=== PATIENT | male | born 1945 | race African-American/Black ===

== ENCOUNTER → 2019-07-17 | Outpatient (CLI) | payer MEDICARE ==
[2019-07-17 16:10] LABS: ALBUMIN 3.5 gm/dl (3.1-4.5); CREATININE 1.81 mg/dL (0.70-1.30); PHOSPHOROUS 2.4 mg/dL (2.5-4.9); TOTAL PROTEIN 7.6 gm/dL (6.4-8.2)
== END | disposition home or self-care (01) ==
LOC: LAB 14:52 → US 15:00
PROVIDERS: Internal Medicine Nephrology
DX: N18.3 Chronic kidney disease, stage 3 (moderate) (principal)

== ENCOUNTER → 2022-01-23 | Outpatient (CLI) | payer MEDICARE | END | disposition home or self-care (01) | LOC: US 01:09 | PROVIDERS: ATTEND Internal Medicine | DX: M50.30 Other cervical disc degeneration, unspecified cervical region (principal); M47.816 Spondylosis without myelopathy or radiculopathy, lumbar region; M51.34 Other intervertebral disc degeneration, thoracic region; I70.208 Unspecified atherosclerosis of native arteries of extremities, other extremity ==

== ENCOUNTER → 2023-02-10 | Outpatient (CLI) | payer MEDICARE | END | disposition home or self-care (01) | LOC: RAD 11:37 | PROVIDERS: ATTEND Internal Medicine | DX: R07.9 Chest pain, unspecified (principal) ==

== ENCOUNTER → 2023-03-15 | Outpatient (CLI) | payer MEDICARE | END | disposition home or self-care (01) | LOC: MRI 00:20 | PROVIDERS: ATTEND Internal Medicine | DX: M47.817 Spondylosis without myelopathy or radiculopathy, lumbosacral region (principal); M48.07 Spinal stenosis, lumbosacral region; M51.36 Other intervertebral disc degeneration, lumbar region ==

== ENCOUNTER → 2023-07-12 | Outpatient (CLI) | payer MEDICARE | END | disposition home or self-care (01) | LOC: US 01:04 | PROVIDERS: ATTEND Internal Medicine | DX: N30.01 Acute cystitis with hematuria (principal) ==

== ENCOUNTER → 2023-08-24 | Outpatient (CLI) | payer MEDICARE ==
[2023-08-24 12:06] LABS: BASO # 0.1 10*3/uL (0.0-0.1); BASO % 1.2 % (0.0-1.0); EOS # 0.2 10*3/uL (0.0-0.4); EOS % 3.3 % (1.0-4.0); HEMATOCRIT 45.5 % (42.0-52.0); LYMPH # 1.8 10*3/uL (1.3-4.4); LYMPH % 35.2 % (27.0-41.0); MEAN CELL VOLUME 89.7 fl (80.0-94.0); MEAN CORPUSCULAR HGB 29.4 pg (27.0-31.0); MEAN CORPUSCULAR HGB CONC 32.7 g/dl (33.0-37.0); MEAN PLATELET VOLUME 9.7 fl (9.6-12.3); MONO # 0.6 10*3/uL (0.1-1.0); MONO % 12.1 % (3.0-9.0); NEUT # 2.5 10*3/uL (2.3-7.9); NEUT % 47.8 % (47.0-73.0); PLATELET COUNT AUTOMATED 184 10*3/uL (130-400); RED BLOOD COUNT 5.07 10*6/uL (4.50-5.90); RED CELL DISTRI WIDTH 13.1 % (0-14.5); WHITE BLOOD COUNT 5.1 10*3/uL (4.8-10.8)
[2023-08-24 12:47] LABS: POTASSIUM 3.6 mmol/L (3.4-5.1)
== END | disposition home or self-care (01) ==
LOC: LAB 11:42
PROVIDERS: ATTEND Urology
DX: Z12.5 Encounter for screening for malignant neoplasm of prostate (principal); N20.0 Calculus of kidney; R31.9 Hematuria, unspecified

== ENCOUNTER → 2023-08-31 | Outpatient (CLI) | payer MEDICARE | END | disposition home or self-care (01) | LOC: CT 00:52 | PROVIDERS: ATTEND Urology | DX: N28.1 Cyst of kidney, acquired (principal); N20.0 Calculus of kidney; K59.00 Constipation, unspecified; K57.30 Diverticulosis of large intestine without perforation or abscess without bleeding ==

== ENCOUNTER → 2025-02-20 | Outpatient (CLI) | payer MEDICARE | END | disposition home or self-care (01) | LOC: US 04:41 | PROVIDERS: ATTEND Internal Medicine | DX: I74.3 Embolism and thrombosis of arteries of the lower extremities (principal); I73.9 Peripheral vascular disease, unspecified ==